=== PATIENT | female | born 1995 | race Caucasian/White ===

== ENCOUNTER 2024-12-05 10:52 | Observation (INO) | payer BC, MEDICAID, SELFPAY ==
[2024-12-05] VITALS (8 sets, daily range): BP systolic 109–127; BP diastolic 67–76; PULSE 80–96
--- NOTE | ~2024-12-05 | US_ITS ---
EXAMINATION: US OB BPP wo non-stress DATE: 12/05/2024 12:58 INDICATION: Fell down stairs this morning. TECHNIQUE: Real-time pelvic ultrasound was performed. The interpreting radiologist was not present fo r the study. COMPARISON: None. FINDINGS: There is a single living fetus in vertex presentation. The placenta is fundal/posterior.. card iac activity and movement are demonstrated. heart rate is 165 beats per minute (bpm). Biophysical profile performed by the technologist: breathing (30 sec sustained breathing in 30 minutes): 2 out of 2 movement (3 gross body movements in 30 minutes): 2 out of 2 tone (one episode of dcikksc-fswgvuiwx-obexoan limb movement): 2 out of 2 Amniotic fluid pocket (2 cm): 2 out of 2 Total score: 8 out of 8 IMPRESSION: 1. Single living intrauterine in vertex presentation with heart rate of 165 bpm. 2. Normal placenta. 3. Biophysical profile 8 out of 8. Reviewed, dictated and finalized at location A.
--- NOTE | 2024-12-05 11:22 | PC.NURSE ---
Pt. stated she fell this morning on her stairs while holding her toddler. Began having abdominal cramps at 0630. FHR tracing is reactive. States her cramping is less intense now compared to onset. No leakage of fluid. No vaginal bleeding. Bruise noted at r. buttocks and lower back.
--- NOTE | 2024-12-05 11:50 | PC.NURSE ---
Dr. Burrows notified of pt. admission and reactive FHR tracing. Orders given for PRN tylenol and US with BPP.
--- NOTE | 2024-12-05 12:08 | OBADM ---
This patient, Kaelyn Payton, admitted to the OB room [facility] for observation. Patient/family oriented to hospital policies and general routines including ID bracelet, bed and alarms, visiting hours, pain management, procedures, bathroom and other care routines, personal items, smoking policy, room service/diet, and visiting hours. Patient/Family are encouraged to report perceived risks to care and to ask questions if they do not understand what they are told or what they should do.
--- OUTSIDE RECORDS SUMMARY | 2024-12-05 12:23 | XMS_ITS | Encounter Summary ---
Author Organization [facility] - [facility] Address [address] [place] [address] Care Team Providers Care Pipeline Executive Name Role Phone Aspen Carter MD Primary Care Provider [phone] Encounter Details Date Type Department Care Team (Late st Contact Info) Description 12/12/2022 [employer] [facility] Patient Accounts [address] [place] [address] [email or web address] Provider Action Required Social History Tobacco Use Types Packs/Day Years Used Date Smoking Tobacco: Never Smokeless Tobacco: Never Alcohol Use Standard Drinks/Week Comments No 0 (1 standard drink = 0.6 oz pur e alcohol) AUDIT-C Answer Date Recorded Frequency of Alcohol Consumption Never 04/09/2019 Average Number of Drinks Not on file 019 Frequency of Binge Drinking Not on file 03/13 Comments No Sex and Gender Information Value Date Recorded Sex Assigned at Not on file Legal Sex Female 5:07 PM CDT Gender Identity Not on file Sexual Orientation Not on file documented as of this encounter Functional Status * RETIRED Are you deaf or do you have serious difficulty hearing Answer Date of Assessment Author Status No 05/07/2022 11:09 AM CDT Acti ve * RETIRED Are you blind or do you have serious difficulty seeing, even when wearing glasses? Answer Date of Assessment Author Status No 05/07/2022 11:09 AM CDT Acti ve * Do you have serious difficulty walking or climbing stairs? Answer Date of Assessment Author Status No 05/07/2022 11:09 AM CDT Antonina Golden R N Active * Do you have difficulty dressing or bathing? Answer Date of Assessment Author Status No 05/07/2022 11:09 AM Antonina Napoles R N Active * Because of a physical, mental, or emotional condition, do you have difficulty doing errands alone such as visiting a doctor's office or shopping? Answer Date of Assessment Author Status No 05/07/2022 11:09 AM Antonina Napoles R N Active documented as of this encounter Mental Status * Because of a physical, mental, or emotional condition, do you have serious difficulty concentrating, remembering, or making decisions? Answer Entry Date Author Status No 05/07/2022 11:09 AM Antonina Napoles R N Active documented in this encounter Plan of Treatment Not on file documented as of this encounter Visit Diagnoses Not on filedocumented in this encounter Care Teams Pipeline Executive Relationship Specialty Start Date End Date Aspen Carter MD PCP - General OBGYN 04/09/19 documented as of this encounter
--- OUTSIDE RECORDS SUMMARY | 2024-12-05 12:23 | XMS_ITS | Data Portability ---
Author Organization [facility] Address [address] [place] [place] [address] Assessment Encounter Date Assessment Date Assessment LastModified by Organization Details LastModified Time 10/14/2024 10/14/2024 Patient is ___weeks . Discussed plan. Not available 10/14/2024 10:24:48 10/28/2024 10/28/2024 Patient is ___weeks . Discussed plan. [email or web address] Not available 10/28/2024 13:05:48 11/25/2024 11/25/2024 Patient is ___weeks . Discussed plan. Not available 11/25/2024 11:19:12 Plan of Treatment Reminders Order Date Submit Date Provider Last Modified By Organization Details Last Modified Time Details Appointments OB ROUTINE 2024 10:15A Gela BURROWS MD Not available Not available Not available INDUCTION 2024 05:00A Gela BURROWS MD Not available Not available Not available Lab None recorded. Referral None recorded. Procedures None recorded. Surgeries None recorded. Imaging US, obstetric , follow-up 2024 025 [email or web address] [address], [address], [place], [address], 11/11/2024 22:39:45 Medication Orders Fioricet 50 mg-300 mg-40 mg capsule [email or web address] [facility]/Pharmacy #[id number], [address], [place], [address], 10/14/2024 21:50:10 ursodiol 300 mg capsule [email or web address] [facility]/Pharmacy #[id number], [address], [place], [address], 10/14/2024 11:23:59 Patient TargetsNo targets recorded. Patient InstructionsNo instructions recorded. Reason for Referral None Reported. Results Created Date Observation Date Name Description Value Unit Range Abnormal Flag Note LastModifiedBy Organization Detail LastModifiedTime 10/14/1910/14/2024 HEMOG LOBIN (HGB) HGB 10.6 g/dL (based on docume nted legal sex) 11.6-1 5.4 low Not Available [facility] (Lab) [address], [place], [address], 10/15/2024 20:08:16 10/14/19 25 10/14/2024 HEMAT OCRIT (HCT) HCT 32.3 % (based on docume nted legal sex) 34.0-4 5.0 low Not Available [facility] (Lab) [address], [place], [address], 10/15/2024 20:08:17 10/14/19 25 10/14/2024 GTT - GESTA SIMBA L SCREE N, ACOG OB glucose, 1 hour screen 162 mg/dL 70-135 high Not Available [facility] (Lab) [address] [place], [address], 10/15/2024 20:08:17 10/14/19 25 10/14/2024 HIV 1/2 ANTIG EN/AN TIBOD Y, REFLE X CONFI RMATI ON HIV antigen/anti body Nonrea ctive nonrea ctive HIV-1 antig en and HIV-1 /HIV- 2 antib odies were not detec carolyn. No labor atory evide nce of HIV infec tion. Not Available [facility] (Lab) [address], [place], [address], 10/15/2024 20:08:17 02/03/20 25 10/14/2024 RPR SCREE N, REFLE X TITER /CONF IRMAT ION RPR screen Nonrea ctive nonrea ctive Not Available [facility] (Lab) [address], [place], [address], 10/15/2024 20:08:18 10/14/19 25 10/14/2024 BILE ACIDS , TOTAL bile acids, total 5 umol/ L 0-10 Not Available [facility] (Lab) [address], [place], [address], 10/15/2024 20:08:18 10/14/19 25 10/14/2024 LEAD, BLOOD (ADUL T/PED IATRI C) lead, whole blood <1.0 mcg/d L <3.5 See Note 1 Rosalind sis was perfo rmed by Munira Estevez ed Plasm a Mass Spect romet ry (ICPM S) Note 1 This test was devel oped and its rosalind tical perfo rmanc e khari cteri stics have been deter mined by [email or web address]. It has not been clear ed or appro albin by the FDA. This assay has been valid ated pursu ant to the CLIA regul ation s and is used for clini maryan purpo ses. Perfo rming Organ izati on Infor sheldon n: Site ID: CB Name: [email or web address] [facility]-Anthony Peng Addre ss: [address] [place] [address] Direc tor: Anahy Kapoor s Not Available [facility] (Lab) [address], [place], [address], 10/15/2024 20:08:18 10/28/19 25 10/28/2024 CMP(C OMPRE HENSI VE METAB OLIC PANEL ) sodium 136 mmol/ L 133-14 6 Not Available [facility] (Lab) [address] [place], [address], 10/29/2024 19:07:52 10/28/19 25 10/28/2024 CMP(C OMPRE HENSI VE METAB OLIC PANEL ) potassium 3.5 mmol/ L 3.5-5. 1 Not Available [facility] (Lab) [address], [place], [address], 10/29/2024 19:07:52 10/28/19 25 10/28/2024 CMP(C OMPRE HENSI VE METAB OLIC PANEL ) chloride 105 mmol/ L 98-107 Not Available [facility] (Lab) [address], [place], [address], 10/29/2024 19:07:52 10/28/19 25 10/28/2024 CMP(C OMPRE HENSI VE METAB OLIC PANEL ) carbon dioxide 23 mmol/ L 21-31 Not Available [facility] (Lab) [address], [place], [address], 10/29/2024 19:07:52 10/28/19 25 10/28/2024 CMP(C OMPRE HENSI VE METAB OLIC PANEL ) anion gap 8 mmol/ L 4-13 Not Available [facility] (Lab) [address], [place], [address], 10/29/2024 19:07:52 10/28/19 25 10/28/2024 CMP(C OMPRE HENSI VE METAB OLIC PANEL ) blood urea nitrogen 16 mg/dL 7-25 Not Available [facility] (Lab) [address], [place], [address], 10/29/2024 19:07:52 10/28/19 25 10/28/2024 CMP(C OMPRE HENSI VE METAB OLIC PANEL ) creatinine 0.51 mg/dL 0.60-1 .30 low Not Available [facility] (Lab) [address], [place], [address], 10/29/2024 19:07:52 10/28/19 25 10/28/2024 CMP(C OMPRE HENSI VE METAB OLIC PANEL ) egfrcr (CKD-epi 2020) >90 mL/mi n/1.7 3_m2 >=60 Not Available [facility] (Lab) [address], [place], [address], 10/29/2024 19:07:52 10/28/19 25 10/28/2024 CMP(C OMPRE HENSI VE METAB OLIC PANEL ) calcium 8.4 mg/dL 8.3-10 .5 Not Available [facility] (Lab) [address], [place], [address], 10/29/2024 19:07:52 10/28/19 25 10/28/2024 CMP(C OMPRE HENSI VE METAB OLIC PANEL ) glucose 113 mg/dL 70-100 high Not Available [facility] (Lab) [address], [place], [address], 10/29/2024 19:07:52 10/28/19 25 10/28/2024 CMP(C OMPRE HENSI VE METAB OLIC PANEL ) protein, total 5.4 g/dL 6.4-8. 3 low Not Available [facility] (Lab) [address], [place], [address], 10/29/2024 19:07:52 10/28/19 25 10/28/2024 CMP(C OMPRE HENSI VE METAB OLIC PANEL ) albumin 3.4 g/dL 3.5-5. 0 low Not Available [facility] (Lab) [address], [place], [address], 10/29/2024 19:07:52 10/28/19 25 10/28/2024 CMP(C OMPRE HENSI VE METAB OLIC PANEL ) ALT 14 units /L 9-43 Not Available [facility] (Lab) [address], [place], [address], 10/29/2024 19:07:52 10/28/19 25 10/28/2024 CMP(C OMPRE HENSI VE METAB OLIC PANEL ) alkaline phosphatase 72 units /L 34-104 Not Available [facility] (Lab) [address], [place], [address], 10/29/2024 19:07:52 10/28/19 25 10/28/2024 CMP(C OMPRE HENSI VE METAB OLIC PANEL ) AST 18 units /L 13-39 Not Available [facility] (Lab) [address], [place], [address], 10/29/2024 19:07:52 10/28/19 25 10/28/2024 CMP(C OMPRE HENSI VE METAB OLIC PANEL ) bilirubin, total 0.4 mg/dL 0.2-1. 2 Not Available [facility] (Lab) [address], [place], [address], 10/29/2024 19:07:52 10/28/19 25 10/28/2024 BILE ACIDS , TOTAL bile acids, total 8 umol/ L 0-10 Test [facility]fo [facility]: [facility] [address] [address] Not Available [facility] (Lab) [address] [place], [address], 10/29/2024 19:07:52 11/12/19 25 11/11/2024 CMP(C OMPRE HENSI VE METAB OLIC PANEL ) sodium 137 mmol/ L 133-14 6 Not Available [facility] (Lab) [address] [place], [address], 11/12/2024 12:53:06 11/12/19 25 11/11/2024 CMP(C OMPRE HENSI VE METAB OLIC PANEL ) potassium 3.2 mmol/ L 3.5-5. 1 low Not Available [facility] (Lab) [address] [place], [address], 11/12/2024 12:53:06 11/12/19 25 11/11/2024 CMP(C OMPRE HENSI VE METAB OLIC PANEL ) chloride 103 mmol/ L 98-107 Not Available [facility] (Lab) [address], [place], [address], 11/12/2024 12:53:06 11/12/19 25 11/11/2024 CMP(C OMPRE HENSI VE METAB OLIC PANEL ) carbon dioxide 24 mmol/ L 21-31 Not Available [facility] (Lab) [address], [place], [address], 11/12/2024 12:53:06 11/12/19 25 11/11/2024 CMP(C OMPRE HENSI VE METAB OLIC PANEL ) anion gap 10 mmol/ L 4-13 Not Available [facility] (Lab) [address], [place], [address], 11/12/2024 12:53:06 11/12/19 25 11/11/2024 CMP(C OMPRE HENSI VE METAB OLIC PANEL ) blood urea nitrogen 8 mg/dL 7-25 Not Available [facility] (Lab) [address], [place], [address], 11/12/2024 12:53:06 11/12/19 25 11/11/2024 CMP(C OMPRE HENSI VE METAB OLIC PANEL ) creatinine 0.50 mg/dL 0.60-1 .30 low Not Available [facility] (Lab) [address], [place], [address], 11/12/2024 12:53:06 11/12/19 25 11/11/2024 CMP(C OMPRE HENSI VE METAB OLIC PANEL ) egfrcr (CKD-epi 2020) >90 mL/mi n/1.7 3_m2 >=60 Not Available [facility] (Lab) [address], [place], [address], 11/12/2024 12:53:06 11/12/19 25 11/11/2024 CMP(C OMPRE HENSI VE METAB OLIC PANEL ) calcium 7.9 mg/dL 8.3-10 .5 low Not Available [facility] (Lab) [address], [place], [address], 11/12/2024 12:53:06 11/12/19 25 11/11/2024 CMP(C OMPRE HENSI VE METAB OLIC PANEL ) glucose 110 mg/dL 70-100 high Not Available [facility] (Lab) [address], [place], [address], 11/12/2024 12:53:06 11/12/19 25 11/11/2024 CMP(C OMPRE HENSI VE METAB OLIC PANEL ) protein, total 5.8 g/dL 6.4-8. 3 low Not Available [facility] (Lab) [address], [place], [address], 11/12/2024 12:53:06 11/12/19 25 11/11/2024 CMP(C OMPRE HENSI VE METAB OLIC PANEL ) albumin 3.6 g/dL 3.5-5. 0 Not Available [facility] (Lab) [address], [place], [address], 11/12/2024 12:53:06 11/12/19 25 11/11/2024 CMP(C OMPRE HENSI VE METAB OLIC PANEL ) ALT 26 units /L 9-43 Not Available [facility] (Lab) [address] [place], [address], 11/12/2024 12:53:06 11/12/19 25 11/11/2024 CMP(C OMPRE HENSI VE METAB OLIC PANEL ) alkaline phosphatase 97 units /L 34-104 Not Available [facility] (Lab) [address] [place], [address], 11/12/2024 12:53:06 11/12/19 25 11/11/2024 CMP(C OMPRE HENSI VE METAB OLIC PANEL ) AST 31 units /L 13-39 Not Available [facility] (Lab) [address] [place], [address], 11/12/2024 12:53:06 11/12/19 25 11/11/2024 CMP(C OMPRE HENSI VE METAB OLIC PANEL ) bilirubin, total 0.4 mg/dL 0.2-1. 2 Not Available [facility] (Lab) [address], [place], [address], 11/12/2024 12:53:06 11/12/19 25 11/11/2024 BILE ACIDS , TOTAL bile acids, total 7 umol/ L 0-10 Test Perfo rmed by: [facility] [address] [address] Not Available [facility] (Lab) [address] [place], [address], 11/12/2024 12:53:07 11/26/19 25 11/25/2024 CMP(C OMPRE HENSI VE METAB OLIC PANEL ) sodium 135 mmol/ L 133-14 6 Not Available [facility] (Lab) [address], [place], [address], 11/26/2024 10:57:47 11/26/19 25 11/25/2024 CMP(C OMPRE HENSI VE METAB OLIC PANEL ) potassium 3.6 mmol/ L 3.5-5. 1 Not Available [facility] (Lab) [address] [place], [address], 11/26/2024 10:57:47 11/26/19 25 11/25/2024 CMP(C OMPRE HENSI VE METAB OLIC PANEL ) chloride 102 mmol/ L 98-107 Not Available [facility] (Lab) [address] [place], [address], 11/26/2024 10:57:47 11/26/19 25 11/25/2024 CMP(C OMPRE HENSI VE METAB OLIC PANEL ) carbon dioxide 24 mmol/ L 21-31 Not Available [facility] (Lab) [address] [place], [address], 11/26/2024 10:57:47 11/26/19 25 11/25/2024 CMP(C OMPRE HENSI VE METAB OLIC PANEL ) anion gap 9 mmol/ L 4-13 Not Available [facility] (Lab) [address], [place], [address], 11/26/2024 10:57:47 11/26/19 25 11/25/2024 CMP(C OMPRE HENSI VE METAB OLIC PANEL ) blood urea nitrogen 10 mg/dL 7-25 Not Available [facility] (Lab) [address], [place], [address], 11/26/2024 10:57:47 11/26/19 25 11/25/2024 CMP(C OMPRE HENSI VE METAB OLIC PANEL ) creatinine 0.46 mg/dL 0.60-1 .30 low Not Available [facility] (Lab) [address], [place], [address], 11/26/2024 10:57:47 11/26/19 25 11/25/2024 CMP(C OMPRE HENSI VE METAB OLIC PANEL ) egfrcr (CKD-epi 2020) >90 mL/mi n/1.7 3_m2 >=60 Not Available [facility] (Lab) [address], [place], [address], 11/26/2024 10:57:47 11/26/19 25 11/25/2024 CMP(C OMPRE HENSI VE METAB OLIC PANEL ) calcium 8.5 mg/dL 8.3-10 .5 Not Available [facility] (Lab) [address], [place], [address], 11/26/2024 10:57:47 11/26/19 25 11/25/2024 CMP(C OMPRE HENSI VE METAB OLIC PANEL ) glucose 104 mg/dL 70-100 high Not Available [facility] (Lab) [address], [place], [address], 11/26/2024 10:57:47 11/26/19 25 11/25/2024 CMP(C OMPRE HENSI VE METAB OLIC PANEL ) protein, total 5.8 g/dL 6.4-8. 3 low Not Available [facility] (Lab) [address], [place], [address], 11/26/2024 10:57:47 11/26/19 25 11/25/2024 CMP(C OMPRE HENSI VE METAB OLIC PANEL ) albumin 3.6 g/dL 3.5-5. 0 Not Available [facility] (Lab) [address], [place], [address], 11/26/2024 10:57:47 11/26/19 25 11/25/2024 CMP(C OMPRE HENSI VE METAB OLIC PANEL ) ALT 30 units /L 9-43 Not Available [facility] (Lab) [address], [place], [address], 11/26/2024 10:57:47 11/26/19 25 11/25/2024 CMP(C OMPRE HENSI VE METAB OLIC PANEL ) alkaline phosphatase 105 units /L 34-104 high Not Available [facility] (Lab) [address], [place], [address], 11/26/2024 10:57:47 11/26/19 25 11/25/2024 CMP(C OMPRE HENSI VE METAB OLIC PANEL ) AST 28 units /L 13-39 Not Available [facility] (Lab) [address], [place], [address], 11/26/2024 10:57:47 11/26/19 25 11/25/2024 CMP(C OMPRE HENSI VE METAB OLIC PANEL ) bilirubin, total 0.5 mg/dL 0.2-1. 2 Not Available [facility] (Lab) [address], [place], [address], 11/26/2024 10:57:47 11/26/19 25 11/25/2024 BILE ACIDS , TOTAL bile acids, total 8 umol/ L 0-10 Test Perfo rmed by: [facility] [address], [place] [address] Not Available [facility] (Lab) [address], [place], [address], 11/26/2024 10:57:48 11/12/19 25 11/11/2024 US, obste tric, follo w-up No observ ation record ed. [email or web address] Michael [address], [place], [address], 11/11/2024 17:20:45 11/12/19 25 11/11/2024 US, obste tric, follo w-up No observ ation record ed. [email or web address] Audrey [address], [place], [address], 11/11/2024 21:56:46 Result Notes None recorded. 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 4 12:49:11 Past history of gestation al diabetes mellitus 815517494 Active 2023 Nadine Briones null, [facility] 4 12:49:33 20135425 Active 2023 Madai Brito null, [facility] 4 11:08:32 Maternal history of gestation al diabetes 613568756 Active Daren Burrows MD [address], [place], [address], [place] [facility] 4 11:28:36 Placenta circumval ruby 5472791 Active 32wk growth [facility], [facility] 4 18:22:42 Blood glucose outside reference range 793018041 Active decline 3hr gtt h/o GDM checking bs [facility], [facility] 5 11:35:10 Blood glucose outside reference range 718418030 Active decline 3hr gtt h/o GDM checking bs [facility], [facility] 5 11:35:10 Notes:Encounter for antenata l screening of mother Recorded Elsewhere: No Location: [facility] Source: EHR Chronic: N Practice ID: [id number] Billable Time: 03:45:00 PM Encounter for screening of mother Practice ID: [id number] Problem Notes None recorded. Procedures Surgical History Date Name Laterality Status Provider Name and Address Organization Details Recorded Time 4 Date of Last Pap Smear completed [facility] 05/27/2024 12:53:01 7 Colposcopy completed [facility] 05/27/2024 12:53:38 7 Colposcopy completed [facility] 05/27/2024 13:03:47 9 extraction of wisdom tooth completed [facility] 05/27/2024 13:04:13 Imaging Results Imaging Date Name Status LastModified by Organiz ation Details LastModified Time 11/11/2024 US, obstetric, follow-up completed [email or web address] Michael [address], [place], [address], 11/11/2024 17:20:45 11/11/2024 US, obstetric, follow-up completed [email or web address] Audrey [address], [place], [address], 11/11/2024 21:56:46 Procedure Notes None recorded. Medical Equipment None Reported. Allergies No known drug allergies Medications Name Sig Start Date Stop Date Status Note LastModified by Organization Details LastModified Time ursodiol 300 mg capsule TAKE 1 CAPSULE BY MOUTH TWICE A DAY active Not Available Not Available No t Available Vitamin D2 1,250 mcg (50,000 unit) capsule take 1 capsule by oral route every week 04/01 completed Prescrib ed Elsewher e: No Locat ion: [facility] odify By: david Justice r DateTime : 10/22/19 16 02:42:36 PM Not Available Not Available Not Available magnesium 30 mg tablet 05/26 completed Prescrib ed Elsewher e: Yes [facility] By: david Moraleste r DateTime : 09/08/20 15 03:45:00 PM Not Available Not Available Not Available active Not Available Not Avai lable Not Available Trijason-D uo DHA 29 mg-1 mg-400 mg oral pack take 2 by Oral route once for 30 days 10/07 completed Prescrib ed Elsewher e: No [facility] By: nathan morales DateTime : 09/08/20 15 03:45:00 PM Not Available Not Available Not Available Vitamin B-12 1,000 mcg/mL oral drops 05/26 completed Prescrib ed Elsewher e: Yes Loca tion: [facility]ify By: david Moraleste r DateTime : 09/08/20 15 03:45:00 PM Not Available Not Available Not Available Fioricet 50 mg-300 mg-40 mg capsule Take 1 capsule every 4 hours by oral route. 2024 active Not Available Not Available Not Avai lable Vitals Date Recorded Body height Body mass index (BMI) Body weight Systolic blood pressure Diastolic blood pressure Provider Name and Address Organization Details Last Updated DateTime 10/14/2024 165.1 cm 24.6 kg/m2 94534.67 g 131 mm[Hg] 85 mm[Hg] Madai [facility] 10:26:12 Date Recorded Body weight Systolic blood pressure Diastolic blood pressure Provider Name and Address Organization Details Last Updated DateTime 10/28/2024 42573.6326 1 g 123 mm[Hg] 81 mm[Hg] Madai [facility] 10/28/2024 12:42:20 Date Recorded Body height Body mass index (BMI) Body weight Systolic blood pressure Diastolic blood pressure Provider Name and Address Organization Details Last Updated DateTime 11/11/2024 165.1 cm 24.5 kg/m2 00883.08 g 125 mm[Hg] 73 mm[Hg] Lillielinda Suttonen [facility] 12:45:10 Date Recorded Body weight Systolic blood pressure Diastolic blood pressure Provider Name and Address Organization Details Last Updated DateTime 11/25/2024 66789.0402 4 g 128 mm[Hg] 79 mm[Hg] Madai [facility] 11/25/2024 11:19:57 Social History Question Answer Notes LastModified by Organizat ion Details LastModified Time Tobacco Smoking Status Former Smoker Nadine perea, [facility] 05/27/2024 13:02:46 What Is Your Level Of Alcohol Consumption? None [email or web address] Information not available 05/27/2024 If You Are , What Was Your Level Of Alcohol Consumption Prior To ? Occasional [email or web address] Information not available 05/27/2024 Are You Blind Or Do You Have Difficulty Seeing? No [email or web address] Information not available 05/27/2024 What Is Your Level Of Caffeine Consumption? Moderate [email or web address] Information not available 05/27/2024 How Much Tobacco Do You Chew? None Information not available 07/22/2024 In The 14 Days Before Symptom Onset, Have You Had Close Contact With A Laboratory-confir med COVID-19 While That Case Was Ill? No [email or web address] Information not available 05/27/2024 In The 14 Days Before Symptom Onset, Have You Had Close Contact With A Person Who Is Under Investigation For COVID-19 While That Person Was Ill? No [email or web address] Information not available 05/27/2024 Have You Been To An Area Known To Be High Risk For COVID-19? No [email or web address] Information not available 05/27/2024 Are You Deaf Or Do You Have Serious Difficulty Hearing? No [email or web address] Information not available 05/27/2024 What Is The Highest Grade Or Level Of School You Have Completed Or The Highest Degree You Have Received? [id number] Information not available 07/22/2024 Do You Use Your Seat Belt Or Car Seat Routinely? Yes [email or web address] Information not available 05/27/2024 Do You Have Smoke And Carbon Monoxide Detectors In Your Home? Yes [email or web address] Information not available 05/27/2024 How Much Tobacco Do You Smoke? No Information not available 07/22/2024 Do You Feel Stressed (tense, Restless, Nervous, Or Anxious, Or Unable To Sleep At Night)? [id number] [email or web address] Information not available 05/27/2024 Do You Use Any Illicit Or Recreational Drugs? No Information not available 05/27/2024 Do You Use Sunscreen Routinely? Yes [email or web address] Information not available 05/27/2024 Has Tobacco Cessation Counseling Been Provided? No [email or web address] Information not available 05/27/2024 Have You Used IV Drugs? No Information not available 07/22/2024 Do You Or Have You Ever Used Any Other Forms Of Tobacco Or Nicotine? No [email or web address] Information not available 05/27/2024 Sex: Unknown Functional Status Question Answer Note LastModified by Organizat ion Details LastModified Time Do you have difficulty walking or climbing stairs? No [email or web address] Information not available 05/27/2024 Are you able to walk? YESWOREST [email or web address] Information not available 05/27/2024 Are you able to care for yourself? Yes Information not available 05/27/2024 Do you have difficulty dressing or bathing? No [email or web address] Information not available 05/27/2024 What is your exercise level? Occasional [email or web address] Information not available 05/27/2024 Mental Status None recorded. Family History Relationship Description Onset Age of this Age Resolved Age Notes LastModified by Organization Details LastModified Time Maternal Grandmother Malignant tumor of lung Not available 05/27 12:59:32 Maternal Grandmother Hypertensive disorder [email or web address] Not available 05/27 12:59:50 Mother Anemia [email or web address] Not available 05/27/2024 13:00:06 Sister Anemia [email or web address] Not available 05/27/2024 13:00:16 Paternal Aunt Malignant tumor of breast [email or web address] Not available 05/27 13:00:38 Notes:Maternal grandmother: Cancer, lung, Hypertension Mother: Anemia Paternal aunt: breast Sister: Anemia, Asthma Medical History Condition Response Allergies (Food, seasonal, environmental ) N Other N Breast Cancer N Drug/Latex Allergies/Reactions N Blood Transfusion N Lung Disease N Dermatologic Disorders N Defects or Inherited Disease N Breast Problem N Gestational Diabetes Y Hematologic disorders N Anesthesia Complications N History of STI N Deep Vein Thrombosis N Polycystic ovary syndrome N Anxiety Disorder N Autoimmune disease N Arthritis N Polyps N Infertility N History of abnormal pap Y Acid Reflux (GERD) N Cancer N Varicosities N Stroke N Neurologic/Epilepsy N Endometriosis N High Cholesterol N Fibromyalgia N Headaches N Kidney Disease N Heart Problems N Kidney or Bladder Problems N Thyroid Problems N GI Problems N Eating Disorder N Anemia N Art (IVF or FET) N Psychiatric Illness N Ovarian Cancer N Diabetes Y Pulmonary (TB, Asthma) N Hepatitis/Liver Disease N No Past Medical History N Eczema N Urinary Tract Infection N Abuse/Domestic Violence N Asthma N Trauma/Violence N Depression/ depression N Heart Disease N Pre-Eclampsia N Hypertension N Osteoporosis N Thrombophilias N Gynecological History Statement/Question Response Date of Last Mammogram Date of LMP 03/22/2024 STIs/STDs N HPV Vaccine Y Colposcopy 11/28/2016 Current Control Method Date of Last Colonoscopy Sexually Active? Y Menses Monthly N Date of DEXA bone scan Date of Last Pap Smear 05/27/2024 Sexual Problems? N LMP Approximate Obstetrics History GPAL:G 5 P 3 0 1 3 Type Value Full Term 3 Spontaneous 1 Living 3 Total 5 Past Encounters Encounter ID Performer Location Encounter Start Date Encounter Closed Date Diagnosis/Indication Diagnosis SNOMED-CT Code Diagnosis ICD10 Code Diagnosis Note [id number] [facility] [address],[place] [address] 05/27/2024 11:42:21 05/27/2024 12:41:50 Gestation period, 8 weeks [id number] O26.841 Z3A.08 [id number] Susana Cardoso [facility] [address],[place] [address] 05/27/2024 11:54:24 05/27/2024 13:14:19 Amenorrhea 01322625 N91.2 [id number] [facility] [address],[place] [address] 06/24/2024 10:18:24 06/24/2024 10:56:23 screening [id number] Z36.82 Z3A.12 [id number] Daren Burrows MD Michael [address],[place] [address] 06/24/2024 10:18:55 06/24/2024 12:00:01 Routine care 366390012 Z34.90 [id number] Daren Burrows MD Michael [address],[place] [address] 07/22/2024 10:58:15 07/22/2024 11:33:16 Routine care 311237460 Z34.90 [id number] [facility] [address],[place] [address] 08/19/2024 09:56:39 08/19/2024 11:01:30 screening for malformation 585164492 Z36.3 Z3A.20 [id number] MD Annie Nuñez [address],[place] [address] 08/19/2024 10:56:26 08/19/2024 11:46:18 Routine care [id number] Z34.90 [id number] MD Annie Nuñez [address],[place] [address] 09/23/2024 12:23:21 09/23/2024 13:13:02 Routine care [id number] Z34.90 [id number] Daren Burrows MD Michael [address],[place] [address] 10/14/2024 10:12:56 10/14/2024 11:34:59 Cholestasis of 542209626 O26.643 Headache 46738362 R51.9 [id number] Daren Burorws MD Michael [address],[place] [address] 10/28/2024 12:28:14 10/28/2024 13:39:10 Routine care [id number] Z34.90 [id number] Sania Akers Michael [address],[place] [address] 11/11/2024 12:02:00 11/11/2024 12:45:24 Placenta circumvallata [id number] O43.113 Z3A.32 [id number] JIM SKINNER MD Michael [address],[place] [address] 11/11/2024 12:03:21 11/11/2024 13:05:09 Gestational diabetes mellitus class A1 51491286 O24.410 - well controlled on diet Placenta circumvallata 2031509 O43.119 - growth US 40% at 32 weeks Gestation period, 32 weeks 4327574 Z3A.32 - continue PNV- discussed preadmissi on Irregular uterine contractions 31570416 O62.2 - resolved- SVE closed [id number] Daren Burrows MD Michael [address],[place] [address] 11/25/2024 10:57:25 11/25/2024 13:38:24 Routine care 148033721 Z34.90 Health Concerns Section Related Observation LastModified by Organization Detai ls LastModified Time None Recorded Concern Status LastModified by Organization Details LastModified Time None Recorded Advance Directives Directive None Recorded Payers Encounter Date Sequence Insurance Name Policy Number Policy Simpson Covered Member ID Simpson Member ID Guarantor Name 10/14/2024 2 [place] [facility] Kaelyn Kreke [id number] Kaelyn Kreke 10/14/2024 1 [place] [id number] [id number] Christopher Kreke [id number] Kaelyn Kreke 10/28/2024 2 [place] [employer] [facility] [facility] [place] Kaelyn Kreke [id number] Kaelyn Kreke 10/28/2024 1 [place] [id number] Christopher Kreke [id number] Kaelyn Kreke 11/11/2024 2 [place] [employer] [facility] [facility] [place] Kaelyn Kreke [id number] Kaelyn Kreke 11/11/2024 1 [place] [id number] A2 Christopher Kreke [id number] Kaelyn Kreke 11/11/2024 2 [place] [employer] [facility] [facility] [place] Kaelyn Kreke [id number] Kaelyn Kreke 11/11/2024 1 [place] [id number] A2 Christopher Kreke [id number] Kaelyn Kreke 11/25/2024 2 [place] [employer] [facility] [facility] [place] Kaelyn Kreke [id number] Kaelyn Kreke 11/25/2024 1 [place] [id number] A2 Christopher Kreke [id number] Kaelyn Kreke OBGyn Episode Ob Episode Information Episode Created Date Number of Fetuses Patient Bloodtype Patient rh Status Prepregnancy Weight lbs Domestic Partner Domestic Partner Phone Father Name Wood Boat Builder Supervisor Status 05/27/20 24 1 CLOSED Fetus Data First Name Last Name Admitted to NICU Weight (g) Sex Living Outcome Pediatric Complications Fetus ID Race Codes Race Delivery Type 4082.32 8 M Full Term [id number] Vaginal Delivery Rk Calculation Initial Rk Date Initial Exam Date Initial Exam Provider Initial Ultrasound Date Last Menstrual Period Date Ultra Sound Weeks Gestation 0 Eighteen To Twenty Week Rk Update Ultra Sound Date Fundal Height At Umbil Quickening Date Ultra Sound Latest Weeks Gestation Final Rk Confirmed By Final Rk Confirmed Date Final Rk Date Ultra Sound Latest Days Gestation 0 0 Menstrual History Last Menstrual Date Menses Monthly On Bcp Conception Prior Menses Frequency Hcg Plus Date Menarche Onset Age Delivery Information Delivery Date Delivery Type Labor Anesthesia Weeks Gestation Incision Type Labor Labor Length Hrs Delivered By Post Complications Tubal Sterilization Discharge Date Comments 9 Discharge Information Feeding Method Contraceptive Method Maternal HG B and HCT Levels Ob Episode Information Episode Created Date Number of Fetuses Patient Bloodtype Patient rh Status Prepregnancy Weight lbs Domestic Partner Domestic Partner Phone Father Name Wood Boat Builder Supervisor Status 06/24/20 24 1 A Positive Nicolas pher OPEN Fetus Data First Name Last Name Admitted to NICU Weight (g) Sex Living Outcome Pediatric Complications Fetus ID Race Codes Race Delivery Type [id number] Problems Problem Notes Ursodiol 300 mgBile acids 5 rpt 10/28 increased to 8 RPT 11/11 symptomatic Problem Name Start Date End Date Resolution Snomed Code Not e Placenta circumvallata [id number] 32wk growth us Blood glucose outside reference range [id number] decline 3hr gtt h/o GDM checking bs Maternal history of gestational diabetes 882412088 Rk Calculation Initial Rk Date Initial Exam Date Initial Exam Provider Initial Ultrasound Date Last Menstrual Period Date Ultra Sound Weeks Gestation 06/24/2024 05/27/2024 03/22/2024 8 Eighteen To Twenty Week Rk Update Ultra Sound Date Fundal Height At Umbil Quickening Date Ultra Sound Latest Weeks Gestation Final Rk Confirmed By Final Rk Confirmed Date Final Rk Date Ultra Sound Latest Days Gestation 0 [email or web address] 06/24/2024 01/06/20 25 0 [place] Flowsheet Flowsheet Date 06/24/2024 Tellez Score Blood Edema Fundus Height Fundus Units Glucose Ketones Leukocytes Nitrite Labor Signs Protein Cervic Dilation Cervic Effacement Cervic Station Type Weight in lbs Pre/Post Dialysis Refused Weight 125.576684039353 BP Diastolic BP Location Tested BP Systolic BP Type 76 L arm 129 sitting Fetus Heart Rate Present A 144 Fetus Movement Comments this patient is a 29-year-ol d multiparous female at 12 weeks' gestation who presents for initial care. She has a history of term vaginal births. Her medical, surgical, obstetric history is unremarkable. She is vaccinated. She was given precautions recommendations for . We talked about vaccines in . Talked about care in detail. She is having genetic testing. She had a normal 12 week ultrasound. To begin routine care. Flowsheet Date 07/22/2024 Tellez Score Blood Edema Fundus Height Fundus Units Glucose Ketones Leukocytes Nitrite Labor Signs Protein Cervic Dilation Cervic Effacement Cervic Station Type Weight in lbs Pre/Post Dialysis Refused 130.718637363582 BP Diastolic BP Location Tested BP Systolic BP Type 69 L arm 112 sitting Fetus Heart Rate Present A 145 Fetus Movement A Yes Comments no complaints, no problems, routine care, no contractions, no vaginal bleeding, no loss of fluid, no cramping Flowsheet Date 08/19/2024 Tellez Score Blood Edema Fundus Height Fundus Units Glucose Ketones Leukocytes Nitrite Labor Signs Protein Cervic Dilation Cervic Effacement Cervic Station Type Weight in lbs Pre/Post Dialysis Refused BP Diastolic BP Location Tested BP Systolic BP Type Fetus Heart Rate Present Fetus Movement Comments Flowsheet Date 08/19/2024 Tellez Score Blood Edema Fundus Height Fundus Units Glucose Ketones Leukocytes Nitrite Labor Signs Protein Cervic Dilation Cervic Effacement Cervic Station 145 cm Type Weight in lbs Pre/Post Dialysis Refused 138.391765637441 BP Diastolic BP Location Tested BP Systolic BP Type 83 L arm 129 sitting Fetus Heart Rate Present Fetus Movement A Yes Comments no complaints, no problems, routine care, no contractions, no vaginal bleeding, no loss of fluid, no cramping Flowsheet Date 09/23/2024 Tellez Score Blood Edema Fundus Height Fundus Units Glucose Ketones Leukocytes Nitrite Labor Signs Protein Cervic Dilation Cervic Effacement Cervic Station Type Weight in lbs Pre/Post Dialysis Refused 144.674053792761 BP Diastolic BP Location Tested BP Systolic BP Type 74 L arm 138 sitting Fetus Heart Rate Present A 145w Fetus Movement A Yes Comments no complaints, no problems, routine care, no contractions, no vaginal bleeding, no loss of fluid, no cramping Flowsheet Date 10/14/2024 Tellez Score Blood Edema Fundus Height Fundus Units Glucose Ketones Leukocytes Nitrite Labor Signs Protein Cervic Dilation Cervic Effacement Cervic Station 28 cm Type Weight in lbs Pre/Post Dialysis Refused Weight 148.451254865518 BP Diastolic BP Location Tested BP Systolic BP Type 85 L arm 131 sitting Fetus Heart Rate Present A 136 Present Fetus Movement A Yes Comments Pruritus of the palms and so les her feet. Reports headaches. Patient to be treated with ursodiol and Fioricet. Talked about medications. We discussed cholestasis in detail Flowsheet Date 10/28/2024 Tellez Score Blood Edema Fundus Height Fundus Units Glucose Ketones Leukocytes Nitrite Labor Signs Protein Cervic Dilation Cervic Effacement Cervic Station 33 cm Type Weight in lbs Pre/Post Dialysis Refused 153.851635922458 BP Diastolic BP Location Tested BP Systolic BP Type 81 L arm 123 sitting Fetus Heart Rate Present A 138 Present Fetus Movement A Yes Comments size bigger than dates. Flowsheet Date 11/11/2024 Tellez Score Blood Edema Fundus Height Fundus Units Glucose Ketones Leukocytes Nitrite Labor Signs Protein Cervic Dilation Cervic Effacement Cervic Station Type Weight in lbs Pre/Post Dialysis Refused BP Diastolic BP Location Tested BP Systolic BP Type Fetus Heart Rate Present Fetus Movement Comments Flowsheet Date 11/11/2024 Tellez Score Blood Edema Fundus Height Fundus Units Glucose Ketones Leukocytes Nitrite Labor Signs Protein Cervic Dilation Cervic Effacement Cervic Station neg none 0cm 50% -3 Type Weight in lbs Pre/Post Dialysis Refused Weight 147.030185911716 BP Diastolic BP Location Tested BP Systolic BP Type 73 L arm 125 sitting Fetus Heart Rate Present A Present Fetus Movement A Yes Comments Patient c/o Colon Diaz, s tated Monday suddenly felt sick, kept throwing up and had really bad contractions. Concerned for PTL. Contractions now improved. SVE per patietn request, closed internally, ~3cm externally. Good movement. EFW 40%, normal ISAIAS. Blood sugar log reviewed, all overall wnl. Discussed preadmission. RTC 2 weeks. Flowsheet Date 11/25/2024 Tellez Score Blood Edema Fundus Height Fundus Units Glucose Ketones Leukocytes Nitrite Labor Signs Protein Cervic Dilation Cervic Effacement Cervic Station Type Weight in lbs Pre/Post Dialysis Refused 152.661706595748 BP Diastolic BP Location Tested BP Systolic BP Type 79 L arm 128 sitting Fetus Heart Rate Present A 150 Present Fetus Movement A Yes Comments no complaints, no problems, routine care, no contractions, no vaginal bleeding, no loss of fluid, no crampingblood sugars are normal Menstrual History Last Menstrual Date Menses Monthly On Bcp Conception Prior Menses Frequency Hcg Plus Date Menarche Onset Age 0703/22/2024 Delivery Information Delivery Date Delivery Type Labor Anesthesia Weeks Gestation Incision Type Labor Labor Length Hrs Delivered By Post Complications Tubal Sterilization Discharge Date Comments Discharge Information Feeding Method Contraceptive Method Maternal HG B and HCT Levels Ob Episode Information Episode Created Date Number of Fetuses Patient Bloodtype Patient rh Status Prepregnancy Weight lbs Domestic Partner Domestic Partner Phone Father Name Wood Boat Builder Supervisor Status 05/27/20 24 1 CLOSED Fetus Data First Name Last Name Admitted to NICU Weight (g) Sex Living Outcome Pediatric Complications Fetus ID Race Codes Race Delivery Type , [place]ont[place] ous [id number] Rk Calculation Initial Rk Date Initial Exam Date Initial Exam Provider Initial Ultrasound Date Last Menstrual Period Date Ultra Sound Weeks Gestation 0 Eighteen To Twenty Week Rk Update Ultra Sound Date Fundal Height At Umbil Quickening Date Ultra Sound Latest Weeks Gestation Final Rk Confirmed By Final Rk Confirmed Date Final Rk Date Ultra Sound Latest Days Gestation 0 0 Menstrual History Last Menstrual Date Menses Monthly On Bcp Conception Prior Menses Frequency Hcg Plus Date Menarche Onset Age Delivery Information Delivery Date Delivery Type Labor Anesthesia Weeks Gestation Incision Type Labor Labor Length Hrs Delivered By Post Complications Tubal Sterilization Discharge Date Comments 1 Discharge Information Feeding Method Contraceptive Method Maternal HG B and HCT Levels Ob Episode Information Episode Created Date Number of Fetuses Patient Bloodtype Patient rh Status Prepregnancy Weight lbs Domestic Partner Domestic Partner Phone Father Name Wood Boat Builder Supervisor Status 05/27/20 24 1 CLOSED Fetus Data First Name Last Name Admitted to NICU Weight (g) Sex Living Outcome Pediatric Complications Fetus ID Race Codes Race Delivery Type 3883.65 4704 M Full Term 07479 Vaginal Delivery Rk Calculation Initial Rk Date Initial Exam Date Initial Exam Provider Initial Ultrasound Date Last Menstrual Period Date Ultra Sound Weeks Gestation 0 Eighteen To Twenty Week Rk Update Ultra Sound Date Fundal Height At Umbil Quickening Date Ultra Sound Latest Weeks Gestation Final Rk Confirmed By Final Rk Confirmed Date Final Rk Date Ultra Sound Latest Days Gestation 0 0 Menstrual History Last Menstrual Date Menses Monthly On Bcp Conception Prior Menses Frequency Hcg Plus Date Menarche Onset Age Delivery Information Delivery Date Delivery Type Labor Anesthesia Weeks Gestation Incision Type Labor Labor Length Hrs Delivered By Post Complications Tubal Sterilization Discharge Date Comments 6 39 Discharge Information Feeding Method Contraceptive Method Maternal HG B and HCT Levels Ob Episode Information Episode Created Date Number of Fetuses Patient Bloodtype Patient rh Status Prepregnancy Weight lbs Domestic Partner Domestic Partner Phone Father Name Wood Boat Builder Supervisor Status 05/27/20 24 1 CLOSED Fetus Data First Name Last Name Admitted to NICU Weight (g) Sex Living Outcome Pediatric Complications Fetus ID Race Codes Race Delivery Type 3713.55 7704 M Full Term 66064 Vaginal Delivery Rk Calculation Initial Rk Date Initial Exam Date Initial Exam Provider Initial Ultrasound Date Last Menstrual Period Date Ultra Sound Weeks Gestation 0 Eighteen To Twenty Week Rk Update Ultra Sound Date Fundal Height At Umbil Quickening Date Ultra Sound Latest Weeks Gestation Final Rk Confirmed By Final Rk Confirmed Date Final Rk Date Ultra Sound Latest Days Gestation 0 0 Menstrual History Last Menstrual Date Menses Monthly On Bcp Conception Prior Menses Frequency Hcg Plus Date Menarche Onset Age Delivery Information Delivery Date Delivery Type Labor Anesthesia Weeks Gestation Incision Type Labor Labor Length Hrs Delivered By Post Complications Tubal Sterilization Discharge Date Comments 2 Discharge Information Feeding Method Contraceptive Method Maternal HG B and HCT Levels
--- OUTSIDE RECORDS SUMMARY | 2024-12-05 12:23 | XMS_ITS | Clinical Summary ---
Author Organization [facility] Address [address] [place] [address] Care Team Providers Care Annealing Furnace Operator Name Role Phone Aspen Carter MD Primary Care Provider [phone] Allergies No known active allergies Medications vitamin 27-1 MG Tab tablet Take 1 tablet by mouth daily. Active cholecalciferol (VITAMIN D-3) 125 MCG (5000 UT) Tab Take 5,000 Units by mouth daily. Active ferrous sulfate EC 325 (65 Fe) MG tablet Take 1 tablet by mouth daily. Active Active Problems Problem Noted Date Diagnosed Date ([facility]) 05/07/2022 Gestational diabetes ([facility]) 05/07/2022 (spontaneous vaginal delivery) ([facility]) Resolved Problems Problem Noted Date Diagnosed Date Resolved Date Encounter for elective induc tion of labor ([facility]) 04/22/2019 04/23/2019 Diet controlled gestational diabetes mellitus (GDM) in third trimester ([facility]) 04/22/201904/23 39 weeks gestation of ([facility]) 04/22/2019 04/23/2019 Family History Medical History Relation Comments Hypertension Father Relation Status Comments Father Alive Mother Alive Sister 1 Alive Sister 2 Alive Sister 3 Alive Sister 4 Alive Son Alive Social History Tobacco Use Types Packs/Day Years [...] on file Sexual Orientation Not on file Last Filed Vital Signs Vital Sign Reading Time Taken Comments Blood Pressure 112/68 05/09/2022 8:00 AM CDT Pulse 79 05/09/2022 8:00 AM CDT Temperature 36.7 C (98.1 F) 05/09/2022 8:00 AM CDT Respiratory Rate 16 05/09/2022 8:00 AM CDT Oxygen Saturation 98% 05/09/2022 8:00 AM CDT Inhaled Oxygen Concentration - - Weight 70.3 kg (155 lb) 04/26/2022 1:00 PM CDT Height 162.6 cm (5' 4 ) 04/26/2022 1:00 PM CDT Body Mass Index 26.61 04/26/2022 1:00 PM CDT Plan of Treatment Health Maintenance Due Date Last Done Comments Cervical Cancer Screening Pa p Smear (Age 30 to 64) Every 3 Years 1993 Annual Physical 1996 DTaP, Tdap and Td Vaccines ( 1 - Tdap) 2012 Hepatitis B Vaccines (1 of 3 - 19+ 3-dose series) 2012 Cervical Cancer Screening Pa p with HPV Testing (Age 30 to 64) Every 5 Years 2023 Cervical Cancer Screening wi th HPV 2023 COVID-19 Vaccine (3 - 2023-2 5 season) 2024 06/04/2021, 05/07/2021 Influenza Adult (#1) 2024 Hepatitis C Completed 10/22/2021 HPV Vaccines Aged Out No longer eligi ble based on patient's age to complete this topic Meningococcal B Vaccine Aged Out No l onger eligible based on patient's age to complete this topic Meningococcal Vaccine Aged Out No dania ernestina eligible based on patient's age to complete this topic Pneumococcal Vaccine: Pediatrics (0 to 5 Years) and At-Risk Patients (6 to 64 Years) Aged Out No longer eligible b ased on patient's age to complete this topic RSV Immunizations Under 20 Months Aged Out No longer eligible b ased on patient's age to complete this topic Procedures Procedure Name Priority Date/Time Associated Diagnosis Comments HEPATITIS C ANTIBODY Routine 10/22/2021 11:39 AM SPACE OFFICER Unspecified screening (HHS/HCC) from Last 3 Months or Most Recently Relevant to Health Maintenance Results * HEPATITIS C ANTIBODY (10/22/2021 11:39 AM SPACE OFFICER) HEPATITIS C AB NON-REACTI VE NON-REACTI VE 10/22/2021 8:10 PM SPACE OFFICER [facility] 10/22/2021 11:3 9 AM SPACE OFFICER [facility] Final Result [facility] [address] [place] [address], from Last 3 Months or Most Recently Relevant to Health Maintenance Insurance [employer] [place] [employer] Advance Directives * Full Code (Latest Code Status on File) Date Activated Date Inactivated Comments 05/07/2022 10:36 AM 05/09/2022 5:18 PM * Full Code Date Activated Date Inactivated Comments 04/26/2022 8:18 AM 04/26/2022 1:31 PM * Full Code Date Activated Date Inactivated Comments 04/15/2022 10:27 AM 04/15/2022 5:29 PM * Full Code Date Activated Date Inactivated Comments 04/22/2019 12:09 PM 04/22/2019 9:27 PM Care Teams Annealing Furnace Operator Relationship Specialty Start Date End Date Aspen Carter MD PCP - General OBGYN 04/09/19
--- NOTE | 2024-12-05 13:36 | PC.NURSE ---
Notified Dr. Burrows of 04/18 BPP, normal placenta per US report and FHR continues to be reactive. Orders given for discharge.
--- NOTE | 2024-12-29 08:34 | PM.OBTRLD ---
OB - Triage/Final Diagnosis Visit Information Comments/Additional reasons for admission: I have assessed the risk for this patient, Kaelyn Payton, and determined that she would benefit from observation care. Final Diagnosis (1) Fall: Code(s): W19.XXXA - Unspecified fall, initial encounter Status: Acute
== END 2024-12-05 14:09 | disposition home or self-care (01) ==
PROVIDERS: Admitting Provider Obstetrics & Gynecology; Visit Provider Obstetrics & Gynecology
DX: O26.893 Other specified pregnancy related conditions, third trimester (principal); W19.XXXA Unspecified fall, initial encounter; Z3A.35 35 weeks gestation of pregnancy
CPT/HCPCS: 76819; G0378; G0379